=== PATIENT | male | born 1970 | race Caucasian/White ===

== ENCOUNTER 2021-05-21 09:51 | Outpatient (CLI) | payer BC ==
[2021-05-21 12:30] LABS: Bilirubin Neg (Negative); Blood, Urine Negative (Negative); Glucose, Urine (Dipstick) Normal (Negative); Ketone, Urine 5 mg/dL (Negative); Leukocyte Negative (Negative); Nitrite Negative (Negative); Protein, Urine (Dipstick) 30 mg/dl (Neg-Trace); Urobilinogen Normal mg/dL (Less than 2)
[2021-05-21 12:35] LABS: Clarity Clear (Clear)
[2021-05-21 12:38] LABS: Anion Gap 12 mmol/L (10-20); BUN (Urea Nitrogen) 18 mg/dL (8.4-25.7); Calc. Creatinine Clearance 0 mL/min (70-130); Calcium 9.7 mg/dL (7.8-10.44); Carbon Dioxide 25 mmol/L (22-29); Chloride 107 mmol/L (98-107); Glucose 100 mg/dL (70-105); Potassium 4.2 mmol/L (3.5-5.1); Sodium 140 mmol/L (136-145)
[2021-05-21 12:45] LABS: INR-International Normal Ratio 0.9; Prothrombin Time 10.4 sec (9.5-12.1)
[2021-05-21 13:02] LABS: #Eosinphils 0.1 10x3/uL (0.0-0.5); #Monocytes 0.7 10x3/uL (0.0-1.1); #Neutrophils 4.9 10x3/uL (1.5-8.4); %Basophils 0.4 % (0.0-2.0); %Lymphocytes 25.2 % (18.0-47.0); %Monocytes 9.5 % (0.0-10.0); %Neutrophils 63.5 % (40.0-75.0); Hemoglobin 14.3 g/dL (13.5-17.5); Mean Corpuscular HGB CONC 33.4 g/dL (32.0-36.0); Mean Corpuscular Hemoglobin 30.8 pg (27.0-33.0); Mean Platelet Volume 10.1 fl (7.4-10.4); Platelet Count 212 10x3/uL (150-450); RBC Distribution Width 13.2 % (11.5-14.5); Red Blood Cell (RBC) Count 4.65 10x6/uL (4.32-5.72); White Blood Cell (WBC) Count 7.7 10x3/uL (3.5-10.5)
[2021-05-21 13:09] LABS: Bacteria/HPF None Seen HPF (None Seen); Mucous/LPF 1+ LPF (<2+); RBC/HPF 0-3 HPF (0-3); Squamous Epithelial 0-3 HPF (0-3); WBC/HPF None Seen HPF (0-3)
[2021-05-23 15:50] LABS: SARS-CoV-2 PCR by NAA Not Detected (NotDetected)
== END 2021-05-21 09:52 | disposition home or self-care (01) ==
LOC: LABBT 09:51
PROVIDERS: ATTEND Orthopaedic Surgery
DX: Z01.818 Encounter for other preprocedural examination (principal); Z20.822 Contact with and (suspected) exposure to COVID-19; S83.241A Other tear of medial meniscus, current injury, right knee, initial encounter
CPT/HCPCS: 80048; 81001; 85025; 85610; 86850; 86900; 86901; 93005; 93010; U0003; U0005

== ENCOUNTER 2021-05-26 06:15 | Day surgery (SDC) | payer BC ==
[2021-05-21 12:30] LABS: Bilirubin Neg (Negative); Blood, Urine Negative (Negative); Glucose, Urine (Dipstick) Normal (Negative); Ketone, Urine 5 mg/dL (Negative); Leukocyte Negative (Negative); Nitrite Negative (Negative); Protein, Urine (Dipstick) 30 mg/dl (Neg-Trace); Urobilinogen Normal mg/dL (Less than 2)
[2021-05-21 12:35] LABS: Clarity Clear (Clear)
[2021-05-21 12:38] LABS: Anion Gap 12 mmol/L (10-20); BUN (Urea Nitrogen) 18 mg/dL (8.4-25.7); Calc. Creatinine Clearance 0 mL/min (70-130); Calcium 9.7 mg/dL (7.8-10.44); Carbon Dioxide 25 mmol/L (22-29); Chloride 107 mmol/L (98-107); Glucose 100 mg/dL (70-105); Potassium 4.2 mmol/L (3.5-5.1); Sodium 140 mmol/L (136-145)
[2021-05-21 12:45] LABS: INR-International Normal Ratio 0.9; Prothrombin Time 10.4 sec (9.5-12.1)
[2021-05-21 13:02] LABS: #Eosinphils 0.1 10x3/uL (0.0-0.5); #Monocytes 0.7 10x3/uL (0.0-1.1); #Neutrophils 4.9 10x3/uL (1.5-8.4); %Basophils 0.4 % (0.0-2.0); %Lymphocytes 25.2 % (18.0-47.0); %Monocytes 9.5 % (0.0-10.0); %Neutrophils 63.5 % (40.0-75.0); Hemoglobin 14.3 g/dL (13.5-17.5); Mean Corpuscular HGB CONC 33.4 g/dL (32.0-36.0); Mean Corpuscular Hemoglobin 30.8 pg (27.0-33.0); Mean Platelet Volume 10.1 fl (7.4-10.4); Platelet Count 212 10x3/uL (150-450); RBC Distribution Width 13.2 % (11.5-14.5); Red Blood Cell (RBC) Count 4.65 10x6/uL (4.32-5.72); White Blood Cell (WBC) Count 7.7 10x3/uL (3.5-10.5)
[2021-05-21 13:09] LABS: Bacteria/HPF None Seen HPF (None Seen); Mucous/LPF 1+ LPF (<2+); RBC/HPF 0-3 HPF (0-3); Squamous Epithelial 0-3 HPF (0-3); WBC/HPF None Seen HPF (0-3)
[2021-05-23 15:50] LABS: SARS-CoV-2 PCR by NAA Not Detected (NotDetected)
[2021-05-25 10:25] VITALS: BMI 29.0
[2021-05-26] MEDS ORDERED: Fentanyl 100 MCG/2 ML VIAL ONE ×2 (06:42→08:43)
[2021-05-26] MEDS ORDERED: PROPOFOL 20 ML ONE (06:58)
[2021-05-26] MEDS ORDERED: Ketorolac Tromethamine 30 MG/ML VIAL ONE (07:46)
[2021-05-26] MEDS ORDERED: Lidocaine 1% PF 5 ML VIAL ONE (07:46)
[2021-05-26] MEDS ORDERED: Lidocaine 2% w/Epinephrine 1:200K 20 ML VIAL ONE (07:46)
[2021-05-26] MEDS ORDERED: Ondansetron PF 4 MG/2 ML Vial ONE (07:46)
[2021-05-26] MEDS ORDERED: Bupivacaine HCl 0.5%/Epinephrine 1:200,000/PF 30 ml Vial ONE (07:46)
[2021-05-26] MEDS ORDERED: PROPOFOL 200 MG/20 ML VIAL ONE (07:46)
[2021-05-26] MEDS ORDERED: Dexamethasone 20 MG/5 ML VIAL ONE (07:46)
[2021-05-26] MEDS ORDERED: Labetalol HCl 100 MG/20 ML VIAL ONE (08:52)
== END 2021-05-26 10:56 | disposition home or self-care (01) ==
LOC: SDC 06:15
PROVIDERS: ATTEND Orthopaedic Surgery
PROC: 0SBC4ZZ Excision of Right Knee Joint, Percutaneous Endoscopic Approach (ICD-10-PCS; principal; 2021-05-26)
DX: S83.231A Complex tear of medial meniscus, current injury, right knee, initial encounter (principal); M94.261 Chondromalacia, right knee; M23.8X1 Other internal derangements of right knee; E78.00 Pure hypercholesterolemia, unspecified; I25.2 Old myocardial infarction; G47.30 Sleep apnea, unspecified; F17.290 Nicotine dependence, other tobacco product, uncomplicated; I10 Essential (primary) hypertension; F10.21 Alcohol dependence, in remission; F13.21 Sedative, hypnotic or anxiolytic dependence, in remission; Z79.02 Long term (current) use of antithrombotics/antiplatelets; Z79.82 Long term (current) use of aspirin; Z79.899 Other long term (current) drug therapy; Z95.5 Presence of coronary angioplasty implant and graft; X58.XXXA Exposure to other specified factors, initial encounter
CPT/HCPCS: 80048; 81001; 85025; 85610; 86850; 86900; 86901; J0690; J1100; J1885; J2405; J2704; J3010; U0003; U0005

== ENCOUNTER 2023-07-13 23:19 | Inpatient (IN) | payer BC, SELFPAY ==
[2023-07-14 00:37] LABS: Acetaminophen Less than 10 mcg/mL (10.0-30.0); Alcohol Less than 10.0 mg/dL (Less than 10); Salicylate Less than 8.0 mg/dL (15.0-30.0)
[2023-07-14 00:46] LABS: Troponin I Less than 0.010 ng/mL (< 0.028)
[2023-07-14 01:36] VITALS: BMI 25.0
[2023-07-14 02:31] LABS: Amphetamine Detected (NotDetected); Barbiturates Screen Not Detected (NotDetected); Benzodiazepine Screen Not Detected (NotDetected); Cocaine Metabolite Screen Not Detected (NotDetected); Methadone Not Detected (NotDetected); Methamphetamine Detected (NotDetected); Opiate Screen Not Detected (NotDetected); Oxycodone Screen Not Detected (NotDetected); Phencyclidine (PCP) Not Detected (NotDetected); THC/Cannabinoid Screen Not Detected (NotDetected); Tricyclic Screen Not Detected (NotDetected)
[2023-07-14] MEDS ORDERED: Acetaminophen 650 MG Suppository PR PRN (06:06)
[2023-07-14] MEDS ORDERED: Ondansetron ODT 4 MG TAB PO PRN (06:06)
[2023-07-14] MEDS ORDERED: hydrALAZINE 20 MG/ML VIAL SLOW IVP PRN ×2 (06:06→16:59)
[2023-07-14] MEDS ORDERED: Acetaminophen 325 MG TAB PO PRN (06:06)
[2023-07-14] MEDS ORDERED: Ondansetron PF 4 MG/2 ML Vial IVP PRN (06:06)
[2023-07-14 06:50] LABS: #Eosinphils 0.1 thou/uL (0.0-0.7); #Monocytes 0.6 thou/uL (0.11-0.59); #Neutrophils 5.3 thou/uL (1.40-6.50); %Basophils 0.3 % (0.0-1.0); %Eosinophils 0.7 % (0.0-10.0); %Lymphocytes 21.1 % (21.0-51.0); %Monocytes 8.1 % (0.0-10.0); %Neutrophils 69.4 % (42.0-75.0); Hematocrit 43.7 % (42.0-52.0); Hemoglobin 15.1 g/dL (14.0-18.0); Mean Corpuscular HGB CONC 34.6 g/dL (32.0-36.0); Mean Corpuscular Volume 86.9 fl (78.0-98.0); Mean Platelet Volume 9.5 fL (7.4-10.4); Platelet Count 166 10x3/uL (130-400); RBC Distribution Width 13.5 % (11.5-14.5); Red Blood Cell (RBC) Count 5.03 mill/uL (4.70-6.10); White Blood Cell (WBC) Count 7.7 10x3/uL (4.8-10.8)
[2023-07-14 07:05] LABS: Hemoglobin A1c 5.2 % (4.0-6.0)
[2023-07-14 07:18] LABS: Anion Gap 11 mmol/L (10-20); BUN (Urea Nitrogen) 13 mg/dL (8.4-25.7); Calc. Creatinine Clearance 123 mL/min (70-130); Calcium 8.8 mg/dL (7.8-10.44); Carbon Dioxide 22 mmol/L (22-29); Chloride 108 mmol/L (98-107); Estimated GFR 103; Glucose 110 mg/dL (70-105); Sodium 137 mmol/L (136-145)
[2023-07-14 09:39] LABS: Cardiac Risk 6.1 (Less than 4.5)
[2023-07-14] MEDS: Aspirin 81 mg Enteric Coated Tablet PO SCH (11:47)
[2023-07-14] MEDS ORDERED: Nicotine 14 MG PATCH TD PRN (14:00)
[2023-07-14] MEDS ORDERED: Atorvastatin Calcium 40 MG TAB PO SCH (21:00)
[2023-07-15] MEDS: Aspirin 81 mg Enteric Coated Tablet PO SCH (08:17)
[2023-07-15 11:29] VITALS: BP 151/78; TEMP 97.5
== END 2023-07-15 11:29 | disposition home or self-care (01) | DRG 65 ==
LOC: ERS 23:19 → ERHOLD 07-14 00:48 → 2SE 07-14 08:34 → OBSVTOIN 07-14 13:20
PROVIDERS: ADMIT Student in an Organized Health Care Education/Training Program; ATTEND Internal Medicine
DX: I63.9 Cerebral infarction, unspecified (principal); G81.94 Hemiplegia, unspecified affecting left nondominant side; N17.9 Acute kidney failure, unspecified; F15.10 Other stimulant abuse, uncomplicated; F17.210 Nicotine dependence, cigarettes, uncomplicated; T67.5XXA Heat exhaustion, unspecified, initial encounter; I10 Essential (primary) hypertension; R47.1 Dysarthria and anarthria; Z79.82 Long term (current) use of aspirin; Z79.899 Other long term (current) drug therapy; Z98.890 Other specified postprocedural states; I25.2 Old myocardial infarction; R29.700 NIHSS score 0
CPT/HCPCS: 36415; 70551; 80048; 80061; 80306; 80307; 83036; 84484; 85025; 93005; 94760

== ENCOUNTER 2024-08-10 20:31 | Inpatient (IN) | payer OTHER ==
[2024-08-10 22:14] VITALS: BMI 22.2
[2024-08-10] MEDS ORDERED: Acetaminophen 325 MG TAB PO PRN (22:56)
[2024-08-10] MEDS ORDERED: Acetaminophen 650 MG Suppository PR PRN (22:56)
[2024-08-10] MEDS ORDERED: Ondansetron PF 4 MG/2 ML Vial IVP PRN (22:56)
[2024-08-10] MEDS ORDERED: Ipratropium/Albuterol 3 ML NEB NEB PRN (23:00)
[2024-08-10] MEDS ORDERED: Electrolyte Replacement Protocol 1 EACH FS PRN (23:13)
[2024-08-10] MEDS ORDERED: Nicotine 14 MG PATCH TD PRN (23:13)
[2024-08-10] MEDS: Morphine 2 MG/ML VIAL SLOW IVP SCH (23:13)
[2024-08-10] MEDS: Dextrose 5%-Lactated Ringers 1,000 ML IV SCH (23:26)
[2024-08-10 23:27] LABS: #Basophils Less than 0.03 10x3/uL (0.0-0.2); %Basophils 0.2 % (0.0-1.0); %Eosinophils 0.6 % (0.0-10.0); %Lymphocytes 17.4 % (21.0-51.0); %Monocytes 6.7 % (0.0-10.0); %Neutrophils 74.9 % (42.0-75.0); Hematocrit 36.8 % (42.0-52.0); Hemoglobin 11.7 g/dL (14.0-18.0); Mean Corpuscular HGB CONC 31.8 g/dL (32.0-36.0); Mean Corpuscular Hemoglobin 26.1 pg (27.0-31.0); Mean Corpuscular Volume 82.1 fL (78.0-98.0); Mean Platelet Volume 9.3 fL (7.4-10.4); Platelet Count 213 10x3/uL (130-400); RBC Distribution Width 15.1 % (11.5-14.5); Red Blood Cell (RBC) Count 4.48 mill/uL (4.70-6.10)
[2024-08-10] MEDS: Zolpidem Tartrate 5 MG TAB PO PRN (23:27)
[2024-08-10 23:41] LABS: ALT (SGPT) 17 U/L (8-55); AST (SGOT) 10 U/L (5-34); Albumin 3.5 g/dL (3.5-5.0); Alkaline Phosphatase 93 U/L (40-110); Anion Gap 17 mmol/L (10-20); BUN (Urea Nitrogen) 14 mg/dL (8.4-25.7); Bilirubin, Total 0.5 mg/dL (0.2-1.2); Calc. Creatinine Clearance 92 mL/min (70-130); Calcium 9.1 mg/dL (7.8-10.44); Carbon Dioxide 22 mmol/L (22-29); Chloride 102 mmol/L (98-107); Estimated GFR 91; Globulin 2.9 g/dL (2.4-3.5); Glucose 149 mg/dL (70-105); Potassium 3.6 mmol/L (3.5-5.1); Protein, Total 6.4 g/dL (6.0-8.3); Sodium 137 mmol/L (136-145)
[2024-08-11] MEDS: Guaifenesin DM 100-10/5 ML UDCUP PO PRN (00:04)
[2024-08-11] MEDS: fentaNYL 50 mcg/mL 1 mL Vial SLOW IVP PRN (00:05)
[2024-08-11] MEDS: LevoFLOXacin 750 mg/D5W 750 MG in Premix 1 BAG IVPB SCH (00:05)
[2024-08-11 00:37] LABS: Amphetamine Not Detected (NotDetected); Barbiturates Screen Not Detected (NotDetected); Benzodiazepine Screen Not Detected (NotDetected); Cocaine Metabolite Screen Not Detected (NotDetected); Methadone Not Detected (NotDetected); Methamphetamine Not Detected (NotDetected); Opiate Screen Not Detected (NotDetected); Oxycodone Screen Not Detected (NotDetected); Phencyclidine (PCP) Not Detected (NotDetected); THC/Cannabinoid Screen Not Detected (NotDetected); Tricyclic Screen Not Detected (NotDetected)
[2024-08-11] MEDS ORDERED: Morphine 2 MG/ML VIAL SLOW IVP PRN (02:00)
[2024-08-11] MEDS: guaiFENesin/Codeine 200 mg/20 mg 10 ml Cup PO SCH ×2 (05:57→22:07)
[2024-08-11] MEDS: Enoxaparin 40 MG (0.4 mL) SYRINGE SC SCH (09:07)
[2024-08-11] MEDS: Famotidine 20 MG TAB PO SCH (09:07)
[2024-08-11] MEDS: Famotidine/PF 20 mg/2ml Vial SLOW IVP SCH (09:07)
[2024-08-11] MEDS ORDERED: Iopamidol-370 76% 500 ML MDV (1 ML CHARGE) ONE (09:18)
[2024-08-11] MEDS ORDERED: Tuberculin PPD 0.1 ML SYRINGE (10 TEST VIAL) I-DERMAL SCH (13:30)
[2024-08-11] MEDS: guaiFENesin ER 600 MG TAB PO SCH (15:22)
[2024-08-11] MEDS: Tuberculin PPD 0.1 ML SYRINGE (10 TEST VIAL) I-DERMAL SCH (15:27)
[2024-08-11] MEDS: HYDROcodone/Acetaminophen 5/325 mg Tablet PO PRN (17:10)
[2024-08-11] MEDS: Benzonatate 100 MG CAP PO PRN (19:45)
[2024-08-12] MEDS: Ondansetron ODT 4 MG TAB PO PRN (08:19)
[2024-08-12] MEDS ORDERED: Prochlorperazine Maleate 5 MG TAB PO PRN (09:48)
[2024-08-12] MEDS: Ketorolac Tromethamine 30 MG (1 mL) VIAL IVP SCH ×2 (11:03→21:58)
[2024-08-12] MEDS: Prochlorperazine Maleate 5 MG TAB PO SCH (11:17)
[2024-08-12] MEDS: Dextromethorphan Polistirex 60 MG/10 ML ER.12 HR UDCUP PO PRN (18:14)
[2024-08-13] MEDS: traMADol HCl 50 MG TAB PO PRN (04:12)
[2024-08-13] MEDS ORDERED: CEFAZOLIN 2 GM in Sodium Chloride 0.9% 100 ML IVPB SCH (11:00)
[2024-08-13] MEDS ORDERED: EPINEPHrine 1 MG/ML VIAL ONE (12:57)
[2024-08-13] MEDS ORDERED: Bupivacaine PF 0.5% 30 ML VIAL ONE (12:57)
[2024-08-13] MEDS ORDERED: CEFAZOLIN 2 GM VIAL ONE (13:03)
[2024-08-13] MEDS ORDERED: fentaNYL PF 100 MCG/2 ML SYRINGE ONE (13:03)
[2024-08-13] MEDS ORDERED: Dexamethasone 20 MG/5 ML VIAL ONE (13:03)
[2024-08-13] MEDS ORDERED: Sodium Chloride 0.9% 0 ML ONE (13:03)
[2024-08-13] MEDS ORDERED: Ondansetron PF 4 MG/2 ML Vial ONE (13:03)
[2024-08-13] MEDS ORDERED: Lidocaine 1% PF 5 ML VIAL ONE (13:03)
[2024-08-13] MEDS ORDERED: PHENYLEPHRINE-NS 100 MCG/ML 10 ML SYRINGE ONE ×2 (13:03→13:46)
[2024-08-13] MEDS ORDERED: PROPOFOL 20 ML ONE (13:03)
[2024-08-13] MEDS ORDERED: Midazolam HCl 2 mg/2 ml Vial ONE (13:03)
[2024-08-13] MEDS ORDERED: Glycopyrrolate 0.2 MG/ML 5 ML SYRINGE ONE (13:03)
[2024-08-13] MEDS ORDERED: Etomidate 40 MG (20 mL) VIAL ONE (13:12)
[2024-08-13] MEDS ORDERED: SUGAMMADEX SODIUM 200 MG/2 ML VIAL ONE (13:14)
[2024-08-13] MEDS ORDERED: Rocuronium Bromide 10 MG/ML (10ML VIAL) ONE (13:31)
[2024-08-13] MEDS ORDERED: fentaNYL 50 mcg/mL 1 mL Vial SLOW IVP PRN (14:10)
[2024-08-13] MEDS ORDERED: Fentanyl 250 MCG/5 ML VIAL ONE (14:30)
[2024-08-13] MEDS ORDERED: Ipratropium/Albuterol 3 ML NEB ONE (14:32)
[2024-08-14] MEDS: fentaNYL 50 mcg/mL 1 mL Vial SLOW IVP PRN (09:14)
[2024-08-14] MEDS: READ PPD TEST SITE PO SCH (09:18)
[2024-08-14 12:16] VITALS: TEMP 98.2
[2024-08-14 15:36] VITALS: BP 154/84
[2024-08-14 19:37] LABS: QuantiFERON-TB Gold Plus Negative (Negative)
== END 2024-08-14 17:15 | disposition home or self-care (01) | DRG 166 ==
LOC: IMCU/EMU 21:28 → 2SW 08-11 15:18
PROVIDERS: ADMIT Internal Medicine; ATTEND Student in an Organized Health Care Education/Training Program
PROC: 0WBC4ZX Excision of Mediastinum, Percutaneous Endoscopic Approach, Diagnostic (ICD-10-PCS; principal; 2024-08-12)
PROC: 3E033XZ Introduction of Vasopressor into Peripheral Vein, Percutaneous Approach (ICD-10-PCS; 2024-08-13)
DX: C34.90 Malignant neoplasm of unspecified part of unspecified bronchus or lung (principal); J98.59 Other diseases of mediastinum, not elsewhere classified; I25.10 Atherosclerotic heart disease of native coronary artery without angina pectoris; R91.1 Solitary pulmonary nodule; R05.3 Chronic cough; Z98.890 Other specified postprocedural states; Z79.82 Long term (current) use of aspirin; Z79.899 Other long term (current) drug therapy; Z86.73 Personal history of transient ischemic attack (TIA), and cerebral infarction without residual deficits
CPT/HCPCS: 36415; 74177; 80306; 86480; 86580; 87040; 87116; 87206; 88305; J0171; J0665; J1100; J1650; J1885; J1956; J2250; J2272; J2405; J2704; J3010; J3490; J7620; Q0162; Q0164; Q9967

== ENCOUNTER 2024-08-26 13:05 | Outpatient (CLI) | payer OTHER ==
[2024-08-26] MEDS ORDERED: Iopamidol 370 76% 100 ML VIAL ONE (15:16)
== END 2024-08-26 13:06 | disposition home or self-care (01) ==
LOC: CT 13:05
PROVIDERS: ATTEND Internal Medicine
DX: C34.90 Malignant neoplasm of unspecified part of unspecified bronchus or lung (principal); R90.89 Other abnormal findings on diagnostic imaging of central nervous system; I65.21 Occlusion and stenosis of right carotid artery; J34.89 Other specified disorders of nose and nasal sinuses
CPT/HCPCS: 70470

== ENCOUNTER 2024-08-27 10:15 | Outpatient (CLI) | payer OTHER | END 2024-08-27 10:16 | disposition home or self-care (01) | LOC: PET 10:15 | PROVIDERS: ATTEND Internal Medicine | DX: C34.90 Malignant neoplasm of unspecified part of unspecified bronchus or lung (principal); J90 Pleural effusion, not elsewhere classified; J98.11 Atelectasis | CPT/HCPCS: 78815; A9552 ==